=== PATIENT | male | born 1985 | race Caucasian/White ===

== ENCOUNTER 2023-09-04 10:05 | Inpatient (IN) | payer BC, SELFPAY ==
[2023-09-04] VITALS (11 sets, daily range): BP systolic 106–122; BP diastolic 59–72; PULSE 96–136; RESP 17–35; TEMP 36.8–37.3; O2SAT 93–100; BMI 30.4
--- NOTE | ~2023-09-04 | US_ITS ---
US thoracentesis DATE: 09/05/2023 11:06 INDICATION: Left pleural effusion TECHNIQUE: Examination was requested for diagnostic purposes. The purpose of the procedure, technique and potential complications including pneumothorax and bleedi ng were discussed with the patient. The patient indicated understanding and gave consent. An appropriate site for percutaneous access was identified by ultrasound at posterior left intercosta l space. The skin was prepared with sterile Betadine solution. Sterile drape was applied. 1% lidocain e local anesthetic was administered to the skin and underlying subcutaneous tissues. A single stick needle/catheter was introduced into the pleural space, yielding clear yellow fluid at the hub. Small syringe was filled with pleural fluid for pH determination. Subsequently, approximatel y 5 CC of yellowish pleural fluid was drained. IMPRESSION: Limited healed of approximately 5 CC clear yellow pleural fluid for diagnostic purposes Reviewed, dictated and finalized at [facility]. Reviewed, dictated and finalized at location [facility].
--- NOTE | ~2023-09-04 | XR_ITS ---
EXAMINATION: XR chest 2V DATE: 09/04/2023 11:18 INDICATION: One week of left chest pain TECHNIQUE: frontal and lateral views of the chest were obtained. COMPARISON: None FINDINGS: Small lung volumes. Opacities in the left mid and lower lung zone corresponding to a small to moderat e-sized left pleural effusion with associated basilar atelectasis or pneumonia. Right lung remains cl ear. No pulmonary edema, pneumothorax or right-sided pleural effusion. Cardiomegaly. IMPRESSION: 1. Small to moderate left pleural effusion with associated left basilar atelectasis and/or pneumonia. 2. Cardiomegaly. Reviewed, dictated and finalized at location [facility]. IMPRESSION: 1. Small to moderate left pleural effusion with associated left basilar atelect asis and/or pneumonia. 2. Cardiomegaly.
--- NOTE | ~2023-09-04 | CT_ITS ---
EXAMINATION: CTA chest PE protocol DATE: 09/05/2023 15:31 INDICATION: empyema TECHNIQUE: Computed tomography angiography (CTA) of the chest was performed with 200 mL Omnipaque-350 intravenous contrast timed to evaluate the pulmonary arteries. Coronal maximum intensity projection 3D-reconstructions were created by the technologist. The dose-length product (DLP) was 1600.26 mGy-cm . Automated exposure control and iterative reconstruction technique were employed. COMPARISON: X-ray chest, same date. FINDINGS: Lung parenchyma and airways: Moderate left lung atelectasis. Heterogeneous parenchymal enhancement in the left lower lobe. Pleura: Loculated appearing a moderate volume left pleural fluid collection with peripheral enhanceme nt. Thoracic inlet, axillae and chest wall: Unremarkable. Thoracic aorta: Normal. Mediastinum: Prominent pericardial fat pad with inflammatory stranding. Heart and pericardium: Normal. Coronary artery calcifications: Absent. Upper abdomen: No significant finding. Bones: No acute osseous finding. Pulmonary arteries: Study quality: Motion artifact limits evaluation of the subsegmental arteries. No central or occlusive segmental pulmonary emboli detected. IMPRESSION: No CT evidence of acute central or occlusive segmental embolus. Moderate left empyema. Heterogeneous left lower lobe enhancement may indicate the presence of infection. Reviewed, dictated and finalized at location [facility]. IMPRESSION: No CT evidence of acute central or occlusive segmental embolus. Moderate left empyema. Heterogeneous left lower lobe enhancement may indicate the presence of infectio n.
--- NOTE | ~2023-09-04 | XR_ITS ---
XR_CXR2VTHORA_CR DATE: 09/05/2023 10:17 INDICATION: Status post thoracentesis TECHNIQUE: AP and lateral views COMPARISON: 09/04/2022 AP and lateral chest at 1116 hours 09/04/2023 CT abdomen pelvis and CT thoracic spine FINDINGS: Probable loculated fluid collection along the mid to upper lateral left chest and increased density of the left mid and particularly lower lung zones likely due to combination of pleural fluid and lung atelectasis/consolidation. No pneumothorax is evident following thoracentesis. The right lung appears clear. No right pleural effusion is evident. IMPRESSION: No evidence of post-thoracentesis pneumothorax Large opacity along the mid to upper lateral chest may be loculated fluid. Increased density of left mid and lower thorax likely due to a combination of pleural effusion and nik ng atelectasis/consolidation Reviewed, dictated and finalized at [facility]. Reviewed, dictated and finalized at location [facility]. IMPRESSION: No evidence of post-thoracentesis pneumothorax Large opacity along the mid to upper lateral chest may be loculated fluid. Increased density of left mid and lower thorax likely due to a combination of p leural effusion and lung atelectasis/consolidation
--- NOTE | ~2023-09-04 | US_ITS ---
EXAMINATION: US renal BI DATE: 09/05/2023 11:15 INDICATION: concerns for pyelo TECHNIQUE: Multiple grayscale and Doppler ultrasound images of the kidneys were obtained. COMPARISON: None. FINDINGS: The right kidney measures 11.4 x 6.1 x 5.9 cm. The left kidney measures 11.6 x 5.7 x 6.0 cm. The kidn eys demonstrate normal parenchymal echogenicity. There is no hydronephrosis. The bladder is normal. IMPRESSION: Unremarkable renal sonogram findings. Reviewed, dictated and finalized at location [facility].
--- NOTE | ~2023-09-04 | CT_ITS ---
EXAMINATION: CT abd pelvis lumbar w con DATE: 09/04/2023 12:25 INDICATION: Left upper quadrant abdominal pain, back pain TECHNIQUE: Computed tomography (CT) of the abdomen and pelvis and lumbar spine was performed with 100 CC Omnipaque 350 intravenous contrast. Automated exposure control and iterative reconstruction techn ique were employed. Exam dose: 1131.72 mGy-cm total exam DLP. COMPARISON: None. FINDINGS: Moderately prominent left pleural effusion with fluid in the left greater fissure. There is compressive atelectasis of the left lower lobe. There is mild discoid atelectasis or scarring in the right lower lobe and to a greater extent the carina gula. Heart size is within normal range. No pericardial effusion. The liver, gallbladder, bile ducts, pancreas, pancreatic duct, spleen, and adrenal glands and kidneys appear normal. No urinary tract calculus or hydroureteronephrosis. Normal caliber of the abdominal aorta. No intraperitoneal or retroperitoneal or pelvic mass lesion or adenopathy or ascites. The urinary bladder and prostate gland and seminal vesicles are unremarkable. Normal appendix. No bowel obstruction, bowel wall thickening, pneumatosis or intraperitoneal free air . There are bilateral L5 pars interarticularis defects without spondylolisthesis. Normal alignment of the lumbar spine. Lumbar and lumbosacral interspaces are well preserved. No suspicious osteolytic or osteoblastic lesions are noted. IMPRESSION: Bilateral L5 pars intra-articular is defects without any associated spondylolisthesis Moderately prominent left pleural effusion and prominent compressive atelectasis of left lower lobe l ine mild discoid atelectasis or scarring in right lower lobe and to a greater extent lingula Reviewed, dictated and finalized at [facility]. Reviewed, dictated and finalized at location [facility]. IMPRESSION: Bilateral L5 pars intra-articular is defects without any associate d spondylolisthesis Moderately prominent left pleural effusion and prominent compressive atelectasi s of left lower lobe line mild discoid atelectasis or scarring in right lower l obe and to a greater extent lingula
--- NOTE | ~2023-09-04 | CT_ITS ---
EXAMINATION: CT thoracic spine wo con DATE: 09/04/2023 12:24 INDICATION: Mid back pain TECHNIQUE: Computed tomography (CT) of the thoracic spine was performed without intravenous contrast. Automated exposure control and iterative reconstruction technique were employed. Exam dose: 1351.89 mGy-cm total exam DLP. COMPARISON: None FINDINGS: Mild thoracic dextroscoliosis. Normal alignment of the thoracic spine. No thoracic spine fracture or bone destruction is detected. Moderately large left pleural effusion and compressive left lower lobe atelectasis are noted. Mild ri ght lower lobe atelectasis. IMPRESSION: Mild thoracic dextroscoliosis; no other significant abnormality of the thoracic spine Moderately large left pleural effusion and prominent compressive atelectasis of left lower lobe, mild right lower lobe atelectasis Reviewed, dictated and finalized at [facility]. Reviewed, dictated and finalized at location [facility].
--- NOTE | 2023-09-04 10:39 | ECG_ITS ---
Measurements Intervals Bryant Rate: 106 P: 20 IN: 124 QRS: -6 QRSD: 89 T: 46 QT: 289 QTc: 385 Interpretive Statements SINUS TACHYCARDIA INCOMPLETE RIGHT BUNDLE BRANCH BLOCK MINIMAL VOLTAGE CRITERIA FOR LVH, CONSIDER NORMAL VARIANT [MEETS CRITERIA IN ONE OF: R(aVL), S(V1), R(V5), R(V5/V6)+S(V1)] NONSPECIFIC T-WAVE ABNORMALITY NO PREVIOUS ECG AVAILABLE FOR COMPARISON Electronically Signed On 09-04-2023 14:30:26 CDT by Phillip Garcia M.D.
--- NOTE | 2023-09-04 10:57 | ED.BACK ---
HPI - Back Pain/Injury General Chief Complaint: Back Pain/Injury Stated Complaint: back pain/upper chest pain with breathing Time Seen by Provider: 09/04/23 10:17 History of Present Illness HPI Narrative: This is a 38-year-old male, with past history of low back surgery, who presents to the emergency department complaining of flank and abdominal pain for the past week. The patient states over the past 2 to 3 weeks, he has had intermittent fevers without obvious cause. Multiple COVID swabs at home are negative. In the past week, he has developed left upper quadrant abdominal pain, midline back pain, left flank pain and mid left chest pain. Pain is worse with movement or lying flat. He also complains of cough productive of yellow sputum without blood. He rates his pain 10/10 and describes it as sharp. In the past 2 days, he has developed nonbloody vomiting and nausea. Related Data Allergies Allergy/AdvReac Type Severity Reaction Status Date / Time Penicillins Allergy Unknown Unknown Verified 09/04/23 15:37 cyclobenzaprine AdvReac Vomiting Verified 09/04/23 15:37 Review of Systems Review of Systems: CONSTITUTIONAL: Subjective fevers and chills denies or sweats. CARDIOVASCULAR: Left-sided chest pain denies palpitations, or edema. RESPIRATORY: Denies cough or dyspnea. GASTROINTESTINAL: Left upper quadrant abdominal pain, left flank pain, nausea and nonbloody vomiting denies diarrhea. GENITOURINARY: Denies dysuria or hematuria. SKIN: Denies rash or itching. MUSCULOSKELETAL: Denies back pain, joint pain, or myalgia. NEUROLOGIC: Lightheadedness denies headache, numbness, or weakness. PSYCHIATRIC: Denies anxiety or depression. [facility] Past Medical History Medical History (Updated 09/04/23 @ 19:26 by Zhou Rao MD) Asthma Surgical History Surgical History (Updated 09/04/23 @ 16:11 by Fidelina Bautista PA-C) History of vasectomy History of ventral hernia repair (2019) Status post excision of lipoma Back. Family History Family History Other Unknown family medical history Social History Social History (Updated 09/04/23 @ 16:11 by Fidelina Bautista PA-C) Social History: Surrogate medical decision maker: Osiris Pizarro, spouse. Code status: Full code. Smoking status: Never smoker Alcohol intake: never Substance use: never Substance use type: does not use Lack of Transportation: No Lack of Food: Never True Current Housing: I Have Housing Concerned About Future Housing: No Difficulty Paying Gas/Electric Bills: No Difficulty Paying for Meds: No Currently Unemployed: No Education: Associate Degree Difficulty w/ Childcare or Family Care: No Spiritual care concerns: No Exam Narrative: GENERAL: Well-developed, well-nourished, appears uncomfortable HEAD: Normocephalic, atraumatic. EYES: PERRLA and EOMI. ENT: Nares clear, no rhinorrhea or epistaxis. Mucous membranes moist. Oropharynx without tonsillar hypertrophy exudate or other lesions. CHEST: Clear to auscultation. No respiratory distress. No wheezes rales or rhonchi HEART: Tachycardic with regular rhythm. No murmur heard. Normal peripheral pulses. ABDOMEN: Soft, tender to palpation in the left upper quadrant without rebound or guarding, nondistended, normal active bowel sounds. Left CVA tenderness to palpation, no right CVA tenderness EXTREMITIES: Normal range of motion. No edema. BACK: Midline spine tenderness to palpation at approximately T-8 without step-off, crepitus, overlying erythema or induration. A well-healed 3 cm surgical wound is noted over the left paraspinal skin at approximately L4 SKIN: Warm, dry, no rash. NEURO: Alert and oriented x3. Moving all 4 limbs purposefully. PSYCH: Normal mood and affect. Course Course Emergency Course: 14:10 - White blood cell count elevated to 18.6. Hemoglobin within normal limits. Platelets elevated at 3
[2023-09-04] MEDS: ONDANSETRON INJ 4 MG/2 ML VIAL IV PUSH (11:02)
[2023-09-04] MEDS: MORPHINE SULFATE (*CRX) 4 MG/ML INJ IV PUSH ×2 (11:02→16:27)
[2023-09-04] MEDS: SODIUM CHLORIDE 0.9% IV 2,000 ML 999 ML IV CONT (11:03)
[2023-09-04 11:08] LABS: Basophils Absolute Auto 0.1 K/mm3 (0.0-0.1); Basophils Percent Auto 0.3 % (0.2-1.2); Eosinophils Absolute Auto 0.1 K/mm3 (0-0.3); Eosinophils Percent Auto 0.3 % (0-4.4); Hematocrit 44.2 % (42.0-52.0); Hemoglobin 15.2 g/dL (14.0-18.0); Immature Granulocyte Absolute 0.11 K/mm3 (0.00-0.031); Immature Granulocyte Percent A 0.6 % (0-0.5); Immature Platelet Fraction Pct 2.1 % (0.9-11.2); Lymphocytes Absolute Auto 1.42 K/mm3 (0.9-3.2); Lymphocytes Percent Auto 7.6 % (18.3-44.2); Mean Corpuscular HGB Conc 34.4 g/dl (32-36); Mean Corpuscular Hemoglobin 29.3 pg (26-34); Mean Corpuscular Volume 85.3 fl (80-100); Mean Platelet Volume 9.5 fl (7.4-10.4); Monocytes Absolute Auto 1.3 K/mm3 (0.1-0.6); Monocytes Percent Auto 7.2 % (2.6-8.5); Neutrophils Absolute Auto 15.6 K/mm3 (1.3-6.7); Platelet Count Result 388 k/mm3 (150-375); Red Blood Count 5.18 M/mm3 (4.6-6.20); Red Cell Distribution Width 11.8 % (11.5-14.5); White Blood Count 18.6 K/mm3 (4.5-10.0)
[2023-09-04 11:18] LABS: Lactic Acid Reflex 2.3 mmol/L (0.7-2.0); Lipase 151 U/L (23-300)
[2023-09-04 11:39] LABS: Glucose Point of Care 127 mg/dl (65-105)
[2023-09-04 12:05] LABS: Alanine Aminotransferase 21 U/L (6-50); Albumin Level 3.2 g/dL (3.5-5.1); Alkaline Phosphatase 76 U/L (38-126); Anion Gap 5 mmol/L (8-16); Aspartate Amino Transferase 18 U/L (17-59); Bilirubin,Total 1.4 mg/dL (0.2-1.3); Blood Urea Nitrogen 11 mg/dL (9-20); Calcium 7.7 mg/dL (8.4-10.2); Carbon Dioxide 22 mmol/L (22-30); Chloride 107 mmol/L (98-107); Estimated CRCL calculation 134 ml/min; Estimated Glomerular Filt Rate > 60; Glucose 114 mg/dL (65-110); Potassium 3.2 mmol/L (3.4-5.0); Sodium 134 mmol/L (137-145)
[2023-09-04 12:06] LABS: Bacteria Urine None Seen /hpf; Mucus Urine Present /lpf; Need Manual Microscopic Reviewed; RBC Urine 0-2 /hpf (0-2); Squamous Epithelial Cell Urine Occasional /hpf (Few); WBC Urine 0-5 /hpf
[2023-09-04 12:07] LABS: Appearance Urine Cloudy (Clear); Bilirubin Urine 2+ (Negative); Blood Urine Negative (Negative); Color Urine Orange (Yellow); Glucose Urine UA 1+ mg/dL (Negative); Ketones Urine Trace mg/dL (Negative); Leukocyte Esterase Ur Trace LEU/UL (Negative); Nitrate Urine Positive (Negative); Protein Urine 2+ mg/dL (Negative); pH Urine 5.5 (5.0-9.0)
[2023-09-04 12:08] LABS: Specific Grav Ur 1.038 (1.001-1.035)
[2023-09-04 12:09] LABS: Add Urine Microscopic? YES
[2023-09-04 12:15] LABS: Troponin I < 0.012 ng/mL (0.000-0.034)
[2023-09-04] MEDS: POTASSIUM CHLORIDE INJ 40 MEQ in SODIUM CHLORIDE 0.9% IV 500 ML 130 MEQ IVPB (12:44)
[2023-09-04] MEDS: CALCIUM GLUC 2,000 MG/NS 100ML 2,000 MG/100 ML BAG 100 MG IVPB (12:47)
[2023-09-04] MEDS: MAGNESIUM SULF 1 GM/D5W 100 ML 1 GM/100 ML BAG IVPB (13:45)
[2023-09-04 14:01] LABS: Reflex Lactic Acid Yes or No Add Lactic
[2023-09-04 14:29] LABS: Lactic Acid 0.8 mmol/L (0.7-2.0)
[2023-09-04] MEDS: DOXYCYCLINE HYCLATE 100 MG TABLET PO (15:09)
--- NOTE | 2023-09-04 15:27 | ADMGEN ---
This patient, Yonny Pizarro, was admitted to Medical Room 244-. Patient/family oriented to hospital policies and general routines including ID bracelet, bed and alarms, visiting hours, pain management, procedures, bathroom and other care routines, personal items, smoking policy, room service/diet, and visiting hours. Information on how to activate the Rapid Response Team has been discussed. Patient/Family are encouraged to report perceived risks to care and to ask questions if they do not understand what they are told or what they should do.
--- NOTE | 2023-09-04 15:52 | PM.IMHP ---
H&P: HPI History of Present Illness Date/Time: 09/04/23 15:45 Chief Complaint: Fever and left-sided back pain. Narrative: This is a previously healthy 38-year-old male who presented to the emergency department via private vehicle for evaluation of fever and left-sided back pain. The patient provides the following history. He has not felt well for nearly 3 weeks with symptoms to include fever, chills, body aches, and cough productive of yellow sputum. He has a sharp pain in the left flank and back which radiates into the left lower chest and left upper quadrant which is worse when lying supine and with movement. He is now experiencing shortness of breath on exertion which is also worse when lying flat. Appetite has not been good and the last 2 days he has developed nausea with several episodes of nonbloody and nonbilious emesis. He has been taking acetaminophen, ibuprofen, and using his rescue inhaler to treat his symptoms. He denies exertional chest pain, palpitations, racing heart, hematemesis, hematochezia, melena, diarrhea, and dysuria. 2 COVID tests taken at home were negative. No family members are sick. In the ED: He was afebrile on arrival. Blood pressures have been stable. Pulse has been consistently in the low 100s but as high as 136 in a sinus tachycardia. Respiratory rate has been high in the mid to upper 20s. Labs were significant for a WBC count of 18.6, sodium 134, potassium 3.2, lactic acid 2.3, bilirubin 1.4, lipase 151. UA was positive for 2+ protein, trace ketones, 1+ glucose, trace leukocyte esterase, and nitrate positive. Chest x-ray showed small to moderate left pleural effusion with associated left basilar atelectasis and/or pneumonia and cardiomegaly. CT scans of the abdomen, pelvis, and lumbar and thoracic spine were without acute vertebral abnormalities but did note a moderately large left pleural effusion and prominent compressive atelectasis of left lower lobe and mild right lower lobe atelectasis. He was given a dose of ceftriaxone and doxycycline for suspected pneumonia and he is being admitted in this setting for further care. Review of Systems Review of Systems: Twelve systems were reviewed and are negative except for as per HPI. [facility] Past Medical History Medical History Asthma Surgical History Surgical History History of vasectomy History of ventral hernia repair (2019) Status post excision of lipoma Back. Family History Family History Other Unknown family medical history Social History Social History Social History: Surrogate medical decision maker: Osiris Pizarro, spouse. Code status: Full code. Smoking status: Never smoker Alcohol intake: never Substance use: never Substance use type: does not use Lack of Transportation: No Lack of Food: Never True Current Housing: I Have Housing Concerned About Future Housing: No Difficulty Paying Gas/Electric Bills: No Difficulty Paying for Meds: No Currently Unemployed: No Education: Associate Degree Difficulty w/ Childcare or Family Care: No Additional living arrangements comments: Lives in [place] with spouse in 5 children. Spiritual care concerns: No Meds Home Medications and Allergies Home Medications Medication Instructions Recorded Confirmed Type No Home Medications 09/04/23 09/04/23 History No Home Medications 09/04/23 09/04/23 History Allergies Allergy/AdvReac Type Severity Reaction Status Date / Time Penicillins Allergy Unknown Unknown Verified 09/04/23 15:37 cyclobenzaprine AdvReac Vomiting Verified 09/04/23 15:37 Vital Signs Vital Signs - 24 hr 09/04/23 10:09 09/04/23 10:12 09/04/23 10:32 Temperature 98.2 F Pulse Rate 136 H 136 H 96 Respira
[2023-09-04 16:56] LABS: INR 1.2; Prothrombin Time 16.1 Seconds (11.1-14.7)
[2023-09-04 16:57] LABS: Partial Thromboplastin Time 36.2 SECONDS (22.3-36.8)
[2023-09-04] MEDS: AZITHROMYCIN 500 MG/NS 250 ML 500 MG/250 ML BAG 250 MG IVPB (17:04)
[2023-09-04 17:07] LABS: Amylase 72 U/L (30-110); Cholesterol 143 mg/dL (0-200); Lactate Dehydrogenase 191 U/L (120-246); Magnesium 2.2 mg/dL (1.6-2.3); Triglycerides 71 mg/dL (<150)
[2023-09-04 17:17] LABS: NT Pro B Type Natriuretic Pept 33 pg/mL (19.9-100)
[2023-09-04 17:25] LABS: Procalcitonin 0.8 ng/mL
[2023-09-04 17:29] LABS: Anion Gap 7 mmol/L (8-16); Blood Urea Nitrogen 10 mg/dL (9-20); Calcium 8.5 mg/dL (8.4-10.2); Carbon Dioxide 22 mmol/L (22-30); Chloride 106 mmol/L (98-107); Estimated CRCL calculation 134 ml/min; Estimated Glomerular Filt Rate > 60; Glucose 90 mg/dL (65-110); Potassium 4.4 mmol/L (3.4-5.0); Sodium 135 mmol/L (137-145)
[2023-09-04 17:30] LABS: CRP 22.6 mg/dL (<1.0)
[2023-09-04] MEDS: HYDROcodone/acetaminophen (*CRX) 5-325 MG TABLET 1 TAB PO (20:44)
[2023-09-04] MEDS: metroNIDAZOLE 500 MG/ISO 100ML 500 MG/100 ML BAG 100 MG IVPB (21:25)
[2023-09-05] VITALS: PULSE 115
[2023-09-05] MEDS: HYDROcodone/acetaminophen (*CRX) 5-325 MG TABLET 1 TAB PO ×5 (00:24→20:44)
[2023-09-05 03:00] VITALS: BP 126/75; PULSE 112; RESP 19; TEMP 36.8; O2SAT 91
[2023-09-05 04:00] VITALS: PULSE 106
[2023-09-05] MEDS: metroNIDAZOLE 500 MG/ISO 100ML 500 MG/100 ML BAG 100 MG IVPB ×3 (05:32→22:22)
[2023-09-05 05:57] LABS: Basophils Absolute Auto 0.1 K/mm3 (0.0-0.1); Basophils Percent Auto 0.3 % (0.2-1.2); Eosinophils Absolute Auto 0.1 K/mm3 (0-0.3); Eosinophils Percent Auto 0.5 % (0-4.4); Hemoglobin 13.8 g/dL (14.0-18.0); Immature Granulocyte Percent A 0.5 % (0-0.5); Immature Platelet Fraction Pct 3.3 % (0.9-11.2); Lymphocytes Absolute Auto 2.11 K/mm3 (0.9-3.2); Lymphocytes Percent Auto 11.1 % (18.3-44.2); Mean Corpuscular HGB Conc 32.9 g/dl (32-36); Mean Corpuscular Hemoglobin 28.8 pg (26-34); Mean Corpuscular Volume 87.5 fl (80-100); Mean Platelet Volume 10.1 fl (7.4-10.4); Monocytes Absolute Auto 1.8 K/mm3 (0.1-0.6); Monocytes Percent Auto 9.6 % (2.6-8.5); Neutrophils Absolute Auto 14.8 K/mm3 (1.3-6.7); Platelet Count Result 334 k/mm3 (150-375); Red Cell Distribution Width 11.8 % (11.5-14.5)
[2023-09-05 06:09] LABS: Potassium 4.6 mmol/L (3.4-5.0)
[2023-09-05 06:25] LABS: Anion Gap 8 mmol/L (8-16); Blood Urea Nitrogen 7 mg/dL (9-20); Calcium 8.8 mg/dL (8.4-10.2); Carbon Dioxide 26 mmol/L (22-30); Chloride 102 mmol/L (98-107); Estimated CRCL calculation 126 ml/min; Estimated Glomerular Filt Rate > 60; Glucose 104 mg/dL (65-110); Sodium 136 mmol/L (137-145)
--- NOTE | 2023-09-05 06:50 | PM.IMPN ---
Progress Note: A&P Assessment and Plan (1) Pneumonia: Qualifiers: Laterality: left Lung location: lower lobe of lung Pneumonia type: due to unspecified organism Qualified Code(s): J18.9 - Pneumonia, unspecified organism Code(s): J18.9 - Pneumonia, unspecified organism Status: Acute Assessment and Plan: Patient developed URI symptoms on 08/07/2023 as per HPI (COVID negative x2 on home kit). He may very well have had a viral infection now with secondary bacterial pneumonia. Azithromycin and ceftriaxone for community acquired pneumonia. Metronidazole also started for possible parapneumonic effusion. Vancomycin 1500 mg x 1 pending MRSA swab. Attempt sputum for culture. Check Legionella and pneumococcal antigens. Mycoplasma IgM pending. Pulmonology consulted and agrees to see the patient this afternoon. (2) Pleural effusion on left: Code(s): J90 - Pleural effusion, not elsewhere classified Status: Acute Assessment and Plan: Patient has pleuritic pain on the left, orthopnea, and dyspnea on exertion. Concerns for parapneumonic infection. Cardiomegaly noted on chest x-ray and CHF needs to be ruled out. Other etiologies less likely. Diagnostic and therapeutic thoracentesis ordered for a.m. Echocardiogram to investigate cardiomegaly. Continue broad-spectrum antibiotics as above. Initial ph is 6.9, concerning for infectious etiology. (3) Abnormal urinalysis: Code(s): R82.90 - Unspecified abnormal findings in urine Status: Acute Assessment and Plan: UA is nitrate and leukocyte esterase positive however no WBCs or bacteria were noted on microscopy. Patient has left flank and back pain though that is likely due to the pleural effusion; no evidence of pyelonephritis noted on imaging. No urinary symptoms. Currently on broad-spectrum antibiotics as above Urine culture pending. Renal US completed (4) Systemic inflammatory response syndrome: Code(s): R65.10 - Systemic inflammatory response syndrome (SIRS) of non-infectious origin without acute organ dysfunction Status: Acute Assessment and Plan: Patient is tachycardic and tachypneic with an elevated white blood cell count and mildly elevated lactic acid level. qSOFA is 1; there is no evidence of organ dysfunction on labs. SIRS is likely due to pleural effusion with associated pneumonia. Continue empiric antibiotics as detailed above. Blood, urine, and sputum cultures ordered. Plan Feeding:regular diet Analgesia:norco with morphine for breakthrough Thromboembolic prophylaxis: scd Ulcer prophylaxis: na Glycemic control: na Bowel regimen: na Lines: piv Antibiotics: azithromycin, rocephin, and flagyl. Received 1 dose of 1500 mg of vanco in the ED. Subjective Date/time seen: 09/05/23 06:50 Interval history: HPI obtained from chart, This is a previously healthy 38-year-old male who presented to the emergency department via private vehicle for evaluation of fever and left-sided back pain. The patient provides the following history. He has not felt well for nearly 3 weeks with symptoms to include fever, chills, body aches, and cough productive of yellow sputum. He has a sharp pain in the left flank and back which radiates into the left lower chest and left upper quadrant which is worse when lying supine and with movement. He is now experiencing shortness of breath on exertion which is also worse when lying flat. Appetite has not been good and the last 2 days he has developed nausea with several episodes of nonbloody and nonbilious emesis. He has been taking acetaminophen, ibuprofen, and using his rescue inhaler to treat his symptoms. He denies exertional chest pain, palpitations, racing heart, hematemesis, hematochezia, melena, diarrhea, and dysuria. 2 COVID tests taken at home were negative. No family members are sick. In the ED: He was afebrile on arrival. Blood pres
[2023-09-05] MEDS: LORazepam (*CRX) 0.5 MG TABLET PO (08:55)
[2023-09-05 10:43] LABS: pH Pleural Fluid 6.669 (7.210-7.500)
[2023-09-05 11:36] LABS: Appearance Pleural Fluid Cloudy (Clear); Color Pleural Fluid Yellow (Colorless); Lymphocytes Pleural Fluid 19 %; Monocytes Pleural Fluid 12 %; Neutrophils Pleural Fluid 69 % (0-25); Pleural fluid source Pleural fluid
[2023-09-05 14:00] VITALS: BP 133/83; PULSE 115; RESP 24; TEMP 37.1; O2SAT 95
[2023-09-05] MEDS: PERFLUTREN LIPID MICROSPHERES 1.5 ML VIAL DILUTED TO 10 ML TOTAL VOLUME IV PUSH (14:20)
--- NOTE | 2023-09-05 15:00 | IVDEFINITY ---
Prior to administration of IV Definity the patient was educated on the risks and benefits of the imaging enhancing agent including potential adverse side effects. The patient verbalized understanding. Allergies were verified. No exclusion criteria were identified and at least one of the following inclusion criteria were met: 1) physician request, 2) patient technically difficult to image (per the [place] [employer] guidelines of two or more segments not discernable within the apical view), or 3) questionable left ventricular function. ?
--- NOTE | 2023-09-05 15:57 | ECHO_ITS ---
Patient Info Name: Yonny Pizarro Age: 38 years : 1985 Gender: Male Ht: 68 in Wt: 200 lbs BSA: 2.11 m2 HR: 88 bpm BP: 126 / 75 mmHg Heart Rhythm: Sinus Rhythm Technical Quality: Poor Exam Date: 09/05/2023 2:13 PM Exam Location: [facility] Exam Room: 244 Patient Status: Inpatient Admit Date: 09/05/2023 Staff Ordering Physician: Fidelina Bautista PA-C [employer]ilities Repairer: Ana Hudson RDCS Attending Provider: Fox Bahena MD Referring Physician: Lily AQUINO; Exam Type: CA echo dop color flow w con Study Info Indications - CARDIOMEGALY PLEURAL EFFUSION Complete two-dimensional, color flow and Doppler transthoracic echocardiogram is performed with contrast to opacify the left ventricle and to improve the deliniation of the left ventricle endocardial borders. Contrast/Agitated Saline Contrast/Ag. Saline: Definity Amount: 2.00 ml Administered By: Ana Hudson [facility] Existing IV Access: Yes IV Access Condition: patent with no signs of infiltration Reason for Poor Study: patient body habitus Summary 1. Left ventricular chamber dimension is normal. 2. Left ventricular systolic function is normal, estimated at 60-65%. 3. There is no increased left ventricular wall thickness. 4. The left ventricular diastolic function is normal. 5. There is mild tricuspid valve regurgitation. Left Ventricle Left ventricular chamber dimension is normal. Left ventricular systolic function is normal, estimated at 60-65%. There is no increased left ventricular wall thickness. The left ventricular diastolic function is normal. Right Ventricle Right ventricular chamber dimension is normal. Right ventricular systolic function is normal. Left Atria Left atrial chamber dimension is normal. Right Atria Right atrial chamber dimension is normal. Atrial Septum Intact interatrial septum visualized by color flow imaging. Aortic Valve The aortic valve is probable trileaflet. There is mild aortic valve sclerosis. There is no aortic valve stenosis. There is trace aortic valve regurgitation. Pulmonic Valve The pulmonic valve is normal. There is no pulmonic valve stenosis. There is trace pulmonic regurgitation. Mitral Valve The mitral valve has normal leaflets. There is no mitral valve stenosis. There is trace mitral valve regurgitation. Tricuspid Valve The tricuspid valve leaflets are normal. There is no significant tricuspid valve stenosis. There is mild tricuspid valve regurgitation. No pulmonary hypertension, estimated pulmonary arterial systolic pressure is 34 mmHg. Pericardium/Pleural The pericardium appears normal. There is no pericardial effusion. Inferior Vena Cava Normal inferior vena cava with >50% collapse upon inspiration consistent with normal right atrial pressure, 8 mmHg. Aorta The aortic root size at the sinus of Valsalva is normal. Left Ventricular Outflow Tract Name Value Normal LVOT 2D LVOT Diameter 2.08 cm LVOT Doppler LVOT Peak Gradient 7 mmHg LVOT Mean Gradient 4 mmHg LVOT VTI 17.88 cm LVOT VTI/A
--- NOTE | 2023-09-05 16:23 | PM.CNPUL ---
Assessment and Plan Assessment and plan (1) Pleural effusion on left: Code(s): J90 - Pleural effusion, not elsewhere classified Status: Acute (2) Abnormal urinalysis: Code(s): R82.90 - Unspecified abnormal findings in urine Status: Acute (3) Empyema: Code(s): J86.9 - Pyothorax without fistula Status: Acute Assessment and Plan: This 38-year-old man presented with one month history of fever, chill,s cough, shortness of breath, night sweats and left pleuritic chest pain. Diagnostic studies with chest x-ray, chest CT, and pleural fluid pH post-thoracentesis are consistent with empyema. The patient is currently on 3 antibiotics, IV ceftriaxone 1 g Q 24, Zithromax and metronidazole. The case was discussed at length with Dr. Bahena, the covering hospitalist. Will increase ceftriaxone to 2 g IV daily, continue with Zithromax and metronidazole and add vancomycin IV at least until MRSA screening is out. Patient does not look septic and stated he is doing little better today than yesterday. On physical exam he is tachycardic. There may be an element of dehydration given the drenching sweats over the last couple of weeks. Would start the patient on IV fluids like IV normal saline. He has elevated bilirubin but normal liver enzymes. Elevated bilirubin may explain his dark urine. I discussed management with patient and his as well as with Dr. Bahena. Given the extent of empyema with multiple pockets of fluid in the left chest cavity, the patient will have to be transferred to a tertiary center for thoracic consultation and possible decortication via VATS. I would add DVT prophylaxis. History of Present Illness History of Present Illness Consult date: 09/05/23 Chief complaint: UTI/Pleural Effusion Narrative: This 38-year-old man presented with weakness chest pain and shortness of breath of approximately 4 weeks duration. The patient was in his usual state of health until approximately 1 month ago when he started to have body aches, fever, coughing productive of yellow phlegm and night sweats. The patient tested negative for COVID. He did not seek medical advice. Two weeks ago, he started to have left pleuritic chest pain and shortness of breath. He continued to have night sweats. He also continued to have mild coughing but no sputum production. Patient denied having hemoptysis, nausea vomiting diarrhea or urinary complaints. He continued to work until yesterday when he presented to the emergency room. Initial diagnostic studies showed left pleural effusion. Patient underwent thoracentesis which showed neutrophilic pleural fluid with a very low pH less than 7.0. The patient received vancomycin 1 dose yesterday. Current antibiotics include ceftriaxone, metronidazole, and Zithromax. Upon questioning he stated he feels little better, having less shortness of breath and less chest pain. Currently he is on supplemental oxygen via nasal cannula. He just underwent chest CT that showed moderate to severe pleural fluid loculation on left with lung atelectasis. There are fluid pockets suggestive of empyema. There is no evidence of pulmonary embolism. WBC remains elevated with a left shift. He stated he has had some dark urine but no urinary symptoms such as urgency or dysuria. Past medical history is significant for mild intermittent asthma on just short-acting bronchodilators, and obesity. Review of Systems Review of Systems: Patient reports no significant weight changes. He sleeps on 3 pillows. He has occasional acid reflux symptoms. He has no nausea vomiting diarrhea constipation. He has no urinary complaints. He has occasional joint ache but no history of joint swelling. He has no history lower extremity edema. He has a history of loud snoring. stated that his breathing often stops at night. Plans to have a sleep study. The remainder of the 12 point system review is negative. PENDING SALE TO [facility] Efren
[2023-09-05] MEDS: SODIUM CHLORIDE 0.9% IV 1,000 ML 75 ML IV CONT (17:30)
[2023-09-05] MEDS: AZITHROMYCIN 500 MG/NS 250 ML 500 MG/250 ML BAG 250 MG IVPB (17:30)
[2023-09-05] MEDS: VANCOMYCIN 1,250 MG/NS 250 ML 1,250 MG/250 ML BAG 166.67 MG IVPB ×2 (17:32→20:43)
[2023-09-05] MEDS: cefTRIAXone 2 GM/NS 100 ML 2 GM/100 ML BAG IVPB (20:52)
[2023-09-05 21:30] VITALS: BP 123/74; PULSE 118; RESP 16; TEMP 37.2; O2SAT 92
[2023-09-05 21:45] VITALS: PULSE 67; RESP 20
[2023-09-05] MEDS: ALBUTEROL SULFATE NEB 2.5 MG/3 ML INH INHALATION (21:58)
--- NOTE | 2023-09-05 22:38 | PC.NURSE ---
pt assigned bed at [facility], room 7464-1. Report called to Keli at [phone]
[2023-09-06 00:25] VITALS: BP 125/81; PULSE 110; RESP 16; TEMP 37.4; O2SAT 94
[2023-09-06 22:21] LABS: Pneumococcal Antigen Urine Not Detected (Not Detected)
--- NOTE | 2023-09-08 11:43 | PM.TDS ---
Transfer Discharge Sum: Prov Provider Date of admission: 09/05/23 09:50 Primary care physician: PHYSICIAN NOT ON STAFF Admitting clinician: Fox Bahena MD Consults: 09/05/23 11:15 Consult to Physician Routine Comment: Consulting Provider: Porfirio Pereira square dance caller/MD group to consult: pulmonology--I already called and spoke with Allie. No need to call. Reason for consultation: infectious effusion Has provider been notified: Yes DS: Admitting Diagnosis Discharge Date 09/06/23 Admitting Diagnosis 09/08 DS: Discharge Diagnosis Discharge Diagnosis (1) Pneumonia: Qualifiers: Laterality: left Lung location: lower lobe of lung Pneumonia type: due to unspecified organism Qualified Code(s): J18.9 - Pneumonia, unspecified organism Code(s): J18.9 - Pneumonia, unspecified organism Status: Acute Assessment and Plan: Patient developed URI symptoms on 08/07/2023 as per HPI (COVID negative x2 on home kit). He may very well have had a viral infection now with secondary bacterial pneumonia. Azithromycin and ceftriaxone for community acquired pneumonia. Metronidazole also started for possible parapneumonic effusion. Vancomycin 1500 mg x 1 pending MRSA swab. Attempt sputum for culture. Check Legionella and pneumococcal antigens. Mycoplasma IgM pending. Pulmonology consulted and agrees to see the patient this afternoon. (2) Pleural effusion on left: Code(s): J90 - Pleural effusion, not elsewhere classified Status: Acute Assessment and Plan: Patient has pleuritic pain on the left, orthopnea, and dyspnea on exertion. Concerns for parapneumonic infection. Cardiomegaly noted on chest x-ray and CHF needs to be ruled out. Other etiologies less likely. Diagnostic and therapeutic thoracentesis ordered for a.m. Echocardiogram to investigate cardiomegaly. Continue broad-spectrum antibiotics as above. Initial ph is 6.9, concerning for infectious etiology. (3) Abnormal urinalysis: Code(s): R82.90 - Unspecified abnormal findings in urine Status: Acute Assessment and Plan: UA is nitrate and leukocyte esterase positive however no WBCs or bacteria were noted on microscopy. Patient has left flank and back pain though that is likely due to the pleural effusion; no evidence of pyelonephritis noted on imaging. No urinary symptoms. Currently on broad-spectrum antibiotics as above Urine culture pending. Renal US completed (4) Systemic inflammatory response syndrome: Code(s): R65.10 - Systemic inflammatory response syndrome (SIRS) of non-infectious origin without acute organ dysfunction Status: Acute Assessment and Plan: Patient is tachycardic and tachypneic with an elevated white blood cell count and mildly elevated lactic acid level. qSOFA is 1; there is no evidence of organ dysfunction on labs. SIRS is likely due to pleural effusion with associated pneumonia. Continue empiric antibiotics as detailed above. Blood, urine, and sputum cultures ordered. Plan Feeding:regular diet Analgesia:norco with morphine for breakthrough Thromboembolic prophylaxis: scd Ulcer prophylaxis: na Glycemic control: na Bowel regimen: na Lines: piv Antibiotics: azithromycin, rocephin, and flagyl. Received 1 dose of 1500 mg of vanco in the ED. Transfer Discharge Sum: Med Medications Active and Home Medications: Home Medications albuterol sulfate 1.25 mg/3 mL solution for nebulization 1.25 mg inhalation Q4H PRN Shortness Of Breath 09/05/23 [History Confirmed 09/05/23] Transfer Discharge Sum: Hosp Hospital Course Hospital course: Yonny Pizarro is a 38 year old male Time Spent with Patient Time attestation: Total time spent providing and/or coordinating transfer services:120 Exam Narrative: General: appears ill, well developed, well nourished, appears stated age. HEENT: hern[place]
[2023-09-09 01:13] LABS: Legionella pneumophila Ag Ur Not Detected (Not Detected)
[2023-09-09 15:56] LABS: Mycoplasma IgM Antibody Titer 30 U/mL (<770)
[2023-09-09 20:40] LABS: Glucose Pleural Fluid <10 mg/dL; LDH Pleural Fluid 1012 U/L; Total Protein Pleural Fluid 3.4 g/dL
[2023-09-10 08:59] LABS: Albumin Pleural Fluid 1.9 g/dL
[2023-09-11 05:49] LABS: Amylase, Pleural Fluid 30 U/L
== END 2023-09-06 00:30 | disposition short-term general hospital (02) | DRG 177 ==
LOC: ANHED 10:46 → ANH2MED 15:10
PROVIDERS: Physician Assistant; Admitting Provider Chiropractor; Emergency Provider Preventive Medicine Aerospace Medicine; Visit Provider Nurse Practitioner Acute Care
DX: J15.29 Pneumonia due to other staphylococcus (principal); J86.9 Pyothorax without fistula; J90 Pleural effusion, not elsewhere classified; B95.7 Other staphylococcus as the cause of diseases classified elsewhere; Z28.21 Immunization not carried out because of patient refusal; J45.909 Unspecified asthma, uncomplicated; R82.90 Unspecified abnormal findings in urine
CPT/HCPCS: 32555; 36415; 71046; 71275; 72128; 72132; 74177; 76775; 80048; 80053; 81001; 82042; 82150; 82465; 82945; 82948; 83605; 83615; 83690; 83735; 83880; 83986; 84145; 84157; 84311; 84478; 84484; 85025; 85055; 85610; 85730; 86140; 86738; 87040; 87070; 87075; 87081; 87147; 87181; 87186; 87205; 87449; 87899; 88108; 88184; 88305; 89051; 93005; 94640; 96361; 96365; 96366; 96367; 96368; 96375; 96376; 99285; A9270; C8929; G0378; J0456; J0613; J0696; J1836; J2270; J2405; J3370; J3475; J3480; J7030; J7040; Q9957; Q9967

== ENCOUNTER 2024-08-17 08:09 | Emergency (ER) | payer BC, SELFPAY ==
--- NOTE | ~2024-08-17 | XR_ITS ---
EXAMINATION: XR chest 2V DATE: 08/17/2024 08:55 INDICATION: Cough. TECHNIQUE: Frontal and lateral views of the chest were obtained. COMPARISON: Chest 2 views 06/04/2023, chest CT 09/05/2023 FINDINGS: There is peripheral scarring and left mid and lower lung zones. There is no pneumonia, pleu ral effusion, or pneumothorax. The heart size is normal. There is a prominent left pericardial fat pa d. There is an old healed left rib fracture. IMPRESSION: 1. Peripheral scarring in left mid and lower lung zones. Reviewed, dictated and finalized at location A.
[2024-08-17 08:20] VITALS: BP 117/71; PULSE 72; RESP 16; TEMP 36.4; O2SAT 99
--- NOTE | 2024-08-17 08:37 | ED.URI ---
HPI - URI/Sore Throat General Chief Complaint: Upper Respiratory Infection Stated Complaint: vongestion and coughing Time Seen by Provider: 08/17/24 08:28 Source: patient, family () and RN notes reviewed Mode of arrival: ambulatory Limitations: no limitations History of Present Illness HPI Narrative: Patient presents today complaining 3 day history of productive cough, nasal congestion, fatigue. Patient has been using Mucinex Flonase with mild relief. Denies fever, sore throat, shortness of breath. Reports daughter was sick last week with similar symptoms. Patient's history of pneumonia, sepsis, empyema last year. Following this infection, he did receive the pneumonia vaccine. He is wary of developing a similar infection and wanted to be evaluated today Related Data Home Medications Medication Instructions Recorded Confirmed albuterol sulfate 1.25 mg/3 mL 1.25 mg inhalation Q4H PRN 09/05/23 08/17/24 solution for nebulization Shortness Of Breath Allergies Allergy/AdvReac Type Severity Reaction Status Date / Time Penicillins Allergy Unknown Unknown Verified 08/17/24 08:20 cyclobenzaprine AdvReac Vomiting Verified 08/17/24 08:20 Review of Systems Review of Systems: CONSTITUTIONAL: Denies body aches, fever, chills, or sweats.+ fatigue EYES: Denies visual changes, redness, or discharge. ENT: Denies rhinorrhea, sore throat, or otalgia.+ congestion CARDIOVASCULAR: Denies chest pain, palpitations, or edema. RESPIRATORY: Denies dyspnea.+ cough GASTROINTESTINAL: Denies abdominal pain, nausea, vomiting, or diarrhea. GENITOURINARY: Denies dysuria or hematuria. SKIN: Denies rash, itching, or wounds. MUSCULOSKELETAL: Denies back pain, joint pain, or myalgia. NEUROLOGIC: Denies headache, numbness, tingling, or weakness. PSYCH: Denies depression or anxiety. [facility] Past Medical History Medical History Asthma Surgical History Surgical History History of vasectomy History of ventral hernia repair (2019) Status post excision of lipoma Back. Family History Family History Other Unknown family medical history Social History Social History Social History: Surrogate medical decision maker: Osiris Pizarro, spouse. Code status: Full code. Smoking status: Never smoker Alcohol intake: never Substance use: never Substance use type: does not use Lack of Transportation: No Lack of Food: Never True Current Housing: I Have Housing Concerned About Future Housing: No Difficulty Paying Gas/Electric Bills: No Difficulty Paying for Meds: No Currently Unemployed: No Education: Associate Degree Difficulty w/ Childcare or Family Care: No Additional living arrangements comments: Lives in [place] with spouse in 5 children. Spiritual care concerns: No Comments At time of signature, I have reviewed and agree with nursing past medical, surgical, social and family history unless otherwise noted. Please see nursing chart for further information. There is no relevant family history pertinent to the presenting complaint Exam Narrative: GENERAL: Well-appearing, well-nourished, and in no acute distress. HEAD: Normocephalic, atraumatic. EYES: EOMI. No redness or drainage. Conjunctivae normal. ENT: Mucous membranes pink and moist. Nares mildly congested. No rhinorrhea. TMs normal bilaterally. Throat normal. Uvula midline. NECK: Normal AROM. Supple. No lymphadenopathy. CHEST: No respiratory distress. Clear to auscultation. HEART: Regular rate and rhythm. No murmur appreciated. EXTREMITIES: Normal range of motion. No edema. SKIN: Warm, dry, no rash. Capillary refill normal. Normal skin turgor. NEURO: No focal deficits. Alert and oriented x3. Gai
[2024-08-17 08:47] LABS: EDCOVIDSCREEN Negative (Negative); EDINFLUASCREEN Negative (Negative); EDINFLUBSCREEN Negative (Negative)
== END 2024-08-17 09:14 | disposition home or self-care (01) ==
PROVIDERS: Emergency Provider Nurse Practitioner; PCP Hospitalist
DX: J06.9 Acute upper respiratory infection, unspecified (principal); Z20.822 Contact with and (suspected) exposure to COVID-19; J45.909 Unspecified asthma, uncomplicated; Z98.52 Vasectomy status
CPT/HCPCS: 71046; 87635; 87804; 99213; G0463